=== PATIENT | male | born 2005 | race Two or more races ===

== ENCOUNTER 2024-10-10 13:45 | Emergency (ER) | payer MEDICAID, SELFPAY ==
[2024-10-10 13:46] VITALS: BMI 23.6
[2024-10-10 14:44] VITALS: BP 122/81; PULSE 105; RESP 18; TEMP 36.8; O2SAT 98
--- NOTE | 2024-10-10 15:02 | XR_ITS ---
EXAMINATION: Ankle, right 3 views . Technique: Ankle AP, oblique, lateral 3 views Date and time of exam: October 10, 2024 1532 hours INDICATIONS: Injury to the ankle today, ankle pain. FINDINGS: No fracture or dislocation No foreign body IMPRESSION: No fracture or dislocation
[2024-10-10] MEDS: IBUPROFEN TAB 400 MG TABLET 800 MG PO (15:08)
--- NOTE | 2024-10-10 15:43 | PD.EDANKLE ---
Lower Extremity Injury RME/HPI General Chief Complaint: Ankle/Foot Injury Stated Complaint: TREE FELL ON RIGHT ANKLE Time Seen by Provider: 10/10/24 14:39 Source: patient Arrival date/time: 10/10/24 13:45 this is a 18-year-old male who presents to the emergency department with complaints of right ankle pain. He states he was pruning a tree when a tree branch fell on his right foot. Reports immediately experienced pain and swelling. patient did not attempt any interventions or take any OTC medications prior to ED visit. Patient denies any other associated symptoms or aggravating factors. No modifying factors, no radiation, no migration. Mode of arrival: ambulatory Related Data Previous Rx's ?Medication ?Instructions ?Recorded ibuprofen 800 mg tablet (IBU) 800 mg PO Q8H #20 tabs 10/10/24 Allergies Allergy/AdvReac Type Severity Reaction Status Date / Time No Known Allergies Allergy Verified 10/10/24 13:49 Review of Systems Review of Systems Systems Reviewed: All systems reviewed, normal except as documented Narrative Review of Systems: Gen: No fever, no chills, no weight loss EYES: No discharge, no visual changes, no pain HEENT: No ear pain, no congestion, no sore throat PULM: No shortness of breath, no cough, no congestion CV: No chest pain, no dyspnea on exertion, no palpitations GI: No nausea, no vomiting, no diarrhea, no pain, no constipation : No frequency, no urgency,? no dysuria Musc/skel: +Right foot pain, no back pain Skin: No rash? ED Exam Narrative Physical exam: General: Sittiing in Exam table in no acute distress, answering questions appropriately HENT: normocephalic, atraumatic, EOMI, PERRLA, moist mucous membranes Chest: chest wall is nontender Cardiac: regular rate and rhythm, normal S1 and S2, no murmurs, rubs, or gallops, capillary refill ?2 seconds Pulmonary: clear to auscultation bilaterally, no wheezing, crackles, or rhonchi Abdominal: active bowel sounds, soft, nontender, nondistended Neuro: A&OX3, CN II-XII intact, sensation grossly intact bilaterally in UE and LE. Skin: no rashes, no ecchymosis Ext: + anterior right foot ecchymosis, swelling. CMS intact Course Quality Measures none Orders Category Date Time Status XR ankle comp RT min 3V Stat Exams 10/10/24 15:02 Completed Ibuprofen Tab [Motrin Tab] Med 10/10/24 15:02 Discontinued 800 mg PO X1 ONE Vital Signs Vital signs: Vital Signs Temperature 98.2 F 10/10/24 14:44 Pulse Rate 105 H 10/10/24 14:44 Respiratory Rate 18 10/10/24 14:44 Blood Pressure 122/81 10/10/24 14:44 Pulse Oximetry (%) 98 10/10/24 14:44 Oxygen Delivery Method Room Air 10/10/24 14:44 Extremity Injury, Lower MDM Narrative MDM Narrative:: no fractures noted on x-ray. Most likely a contusion versus sprain.. Ankle stirrup cast and crutches provided. advised to decrease weight for 2 weeks on that foot follow-up with his PCP return to ER if any worsening symptoms any condition. Patient data External records reviewed:: [facility] previous records Clinical information provided by:: patient Social determinants that could affect healthcare access:: none Patient has the following chronic illnesses:: none How is presenting disease/condition affected by chronic disease/condition?: no chronic disease Evaluation data The following diagnostics were reviewed and interpreted by me:: radiology exam(s) Lab and/or radiology exams considered but not ordered:: none Interpretation Summary: EXAMINATION: Ankle, right 3 views . Technique: Ankle AP, oblique, lateral 3 views Date and time of exam: October 10, 2024 1532 hours INDICATIONS: Injury to the ankle today, ankle pain. FINDINGS: No fracture or dislocation No foreign body IMPRESSION: No fracture or dislocation Medications / Prescriptions Medications or Prescriptions considered but not ordered:: none Medication administrations:: Medication Administration History Discontinued Medications Ibuprofen (Ibuprofen Tab 400 Mg Tablet) 800 mg PO X1 ONE Stop: 10/10/24 15:03 Last Admin: 10/10/24 15:08 Dose: 800 mg Documented By: KF All medications administered and effective Consultations Consultation(s) initiated? (list below): No Diagnosis Extremity Injury, Lower Differential Diagnosis: ankle sprain and strain and other (Ankle sprain ) Most likely diagnosis given after review of the tests above:: Ankle sprain and strain Admission Indicated Admission indicated?: not indicated Explain why admission is indicated or not indicated:: none Admission Request Was there a request for admission?: No Disposition Plan Disposition Plan: Discharge Discharge Attestation Discharge Attestation: The patient and all family members were given an opportunity to ask questions and understood the discharge instructions. Discharge instructions specifically effects, indications for sooner follow up or return to the emergency department, and the expected course of current diagnosis. Patient condition: Stable Discharge Plan Plan Patient Disposition: HOME (Self Care) Patient condition on transfer: Stable Prescriptions/Referrals Prescriptions/Med Rec: New ibuprofen [IBU] 800 mg tablet 800 mg PO Q8H Qty: 20 0RF Problem List Clinical Impression: Ankle sprain and strain Patient/Caregiver Discharge Instructions Additional Instructions: You have been evaluated in the Emergency Department today for ankle pain. The x-ray of your ankle is negative for broken bones. ? You can alternate Tylenol and Motrin every 4-6 hours to help control your pain. Please also rest, ice, and elevate your ankle to control your pain.? -Use crutches as directed. And the ankle stirrup splint into your evaluated by your primary doctor Please follow up with your primary care physician as needed.?If you do not have a primary doctor, you can call your insurance company to find one. ?If you do not have insurance, you can go to the finance/registration department?for more assistance. Return to the Emergency Department if you experience worsening pain, numbness/tingling, change of color in your toes, or any other concerning symptoms.? Print Language: Luxembourgish Stand Alone Forms: Karishma Award Info., Patient Portal Info Letter PA/SARINA Supervising Physician ZAFAR/SARINA Supervising Physician: dr. renee
== END 2024-10-10 16:10 | disposition home or self-care (01) ==
PROVIDERS: Emergency Provider Emergency Medicine; PCP Nurse Practitioner Family
DX: S93.401A Sprain of unspecified ligament of right ankle, initial encounter (principal); S96.911A Strain of unspecified muscle and tendon at ankle and foot level, right foot, initial encounter; W20.8XXA Other cause of strike by thrown, projected or falling object, initial encounter
CPT/HCPCS: 29515; 73610; 99283; A9270